=== PATIENT | male | born 1970 | race Caucasian/White ===

== ENCOUNTER 2017-02-15 10:46 | Emergency (ER) | payer OTHER ==
[~2017-02-15] VITALS: Ht 157.5 cm; Wt 74.5 kg
[2017-02-15 10:49] VITALS: Ht 157.5 cm; Wt 74.5 kg
--- NOTE | 2017-02-15 14:47 | ERD ---
ER Documentation Chief Complaint Chief Complaint RIGHT EYE PAIN HPI 46-year-old male who presents emergency department for right eye pain and redness for about a week. Stated that it feels itchy at times and she felt like there is a Lilian in it. Denies headache, dizziness, changes in vision, eye trauma, eye injury, use of contact lens, foreign body sensation to his eyes, neck pain, throat pain, difficulty swallowing, loss of appetite, shoulder pain, chest pain, back pain, difficulty breathing when lying flat, abdominal pain, nausea, vomiting, constipation, diarrhea, urinary symptoms, loss of bowel and bladder control, recent long travel, recent travel, recent exposure to any illness, recent antibiotic use in the last 3 months, fever, chills, difficulty walking. 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 He denies any eye trauma/injury at work. No past medical history. ROS All systems reviewed and are negative except as per history of present illness. Medications Home Meds Active Scripts Sulfacetamide Sodium* (Bleph-10*) 10%-15 Ml Opht Drops, 1 DROP BOTH EYES Q2H for 7 Days, #1 EA Prov:KAREN BOLIVAR 02/15/17 Allergies Allergies: Coded Allergies: No Known Allergy (Unverified , 02/15/17) PMhx/Soc Medical and Surgical Hx: pt denies Medical Hx, pt denies Surgical Hx History of Surgery: No Anesthesia Reaction: No Hx Neurological Disorder: No Hx Respiratory Disorders: No Hx Cardiac Disorders: No Hx Psychiatric Problems: No Hx Miscellaneous Medical Probl: No Hx Alcohol Use: Yes (socially) Hx Substance Use: No Hx Tobacco Use: No Smoking Status: Never smoker Physical Exam Vitals Vital Signs Date Time Temp Pulse Resp B/P Pulse Ox O2 Delivery O2 Flow Rate FiO2 02/15/17 10:49 97.5 77 18 145/76 99 Physical Exam Const: Well-appearing. Not in acute respiratory distress. Head: Atraumatic Eyes: Left eye: Mild conjunctival injection. Right eye: Conjunctival injection. Noted greenish to yellowish crusting to the lower eyelid. No pain in eye movement bilaterally. Extraocular movement of his eyes within normal limits. Pupils are reactive to light bilaterally. Periorbital area has no swelling/redness bilaterally. ENT: Normal External Ears, Nose and Mouth. Throat: Uvula is midline nondisplaced. Tonsils are +1 bilaterally without redness without exudates. Tolerating secretions. Patent airway. Speaks full and clear sentences. Neck: Full range of motion..~ No meningismus. Resp: Clear to auscultation bilaterally Cardio: Regular rate and rhythm, no murmurs Abd: Soft, non tender, non distended. Normal bowel sounds Skin: No petechiae or rashes Back: No midline or flank tenderness Ext: No cyanosis, or edema Neur: Awake and alert. Romberg test is negative. No neurological deficits. Psych: Normal Mood and Affect Results 24 hrs Current Medications Medications (Trade) Dose Ordered Sig/Adan Route PRN Reason Start Time Stop Time Status Last Admin Dose Admin Proparacaine HCl (Alcaine 0.5%) 1 drop ONCE ONCE RIGHT EYE 02/15/17 15:00 02/15/17 15:01 DC Fluorescein Sodium (Loady-S-Qxbur) 1 strip ONCE ONCE RIGHT EYE 02/15/17 15:00 02/15/17 15:01 DC 02/15/17 14:55 Tetracaine HCl (Tetracaine 0.5% Steri-Unit Jerri) 40 drop STK-MED ONCE .ROUTE 02/15/17 14:53 02/15/17 14:54 DC Procedures/MDM ED visual acuity: Left eye: 20/40 Right eye: 20/40 Bilateral eyes: 20/40 Treatment: Proparacaine right eye and left eye. Fluorescein staining. Under Isabel lamp: Left eye: No uptake. No foreign bodies. No signs of globe rupture. Right eye : 9:00 corneal ulcer. No foreign bodies. No signs of globe rupture. Cole-Pen: Left eye: 28 and 32 Right eye: 26 and 30 Case and diagnostic tests/results was discussed with supervising emergency room physician, Dr. Evan Mckay with my medical decision making to discharge patient and have him follow-up with shirt creaser, and prescribe him with Bleph-10 ophthalmic drops. Differential diagnosis: I have low suspicion for supraclinoid artery aneurysm, orbital cellulitis, periorbital cellulitis, acute closure angle glaucoma given my physical findings, my eye exam, patient's history. Final diagnosis: Conjunctivitis. Corneal ulcer. Prescription: Bleph-10 drops. Follow-up with PCP in the next 3-4 days. PCP to refer patient to shirt creaser in the next 3-4 days. Come back here in the emergency department for any new symptoms or any worsening of symptoms. All questions and concerns were answered. Patient verbalized understanding and agreed with plan of care. Hemodynamically stable on discharge. Departure Diagnosis: Primary Impression: Conjunctivitis Additional Impression: Corneal ulcer Condition: Stable Additional Instructions: Follow-up with PCP in the next 3-4 days. PCP to refer patient to shirt creaser in the next 3-4 days. Come back here in the emergency department for any new symptoms or any worsening of symptoms. All questions and concerns were answered. Patient verbalized understanding and agreed with plan of care. KAREN BOLIVAR Feb 15, 2017 14:47
[2017-02-15] MEDS ORDERED: TETRACAINE 0.5% 4 ML OPH ONE (14:53)
[2017-02-15] MEDS ORDERED: PROPARACAINE 0.5% 15 ML OPH RIGHT EYE ONE (15:00)
[2017-02-15] MEDS ORDERED: FLUORESCEIN STRIP RIGHT EYE ONE (15:00)
[2017-02-15] MEDS ORDERED: SULF15DR19 BOTH EYES (15:23)
== END 2017-02-15 15:41 | disposition home or self-care (01) ==
LOC: FTE 10:46
DX: H16.003 Unspecified corneal ulcer, bilateral (principal); H10.9 Unspecified conjunctivitis
CPT/HCPCS: Z7502; Z7610; 99283